=== PATIENT | male | born 1950 | race Caucasian/White ===

== ENCOUNTER 2018-12-16 10:20 | Emergency (ER) | payer MEDICARE, OTHER ==
[~2018-12-16] VITALS: Wt 60.0 kg
--- NOTE | 2018-12-16 11:08 | ERD ---
ER Documentation Chief Complaint Chief Complaint high blood pressure reading with no neuro deficit or pain. no complaints. HPI 68-year-old male presents the emergency department today for evaluation of his blood pressure at the request of a friend. Patient states he is asymptomatic with no chest pain, shortness of breath, headache, focal weakness or numbness. His blood pressure is chronically elevated and he states that he is compliant with his medications. His blood pressure was noted to be elevated by his friend who requested that he get an evaluation. However, patient continues to state that he has no symptoms at all. ROS All systems reviewed and are negative except as per history of present illness. Physical Exam Vitals Vital Signs Date Temp Pulse Resp B/P (MAP) Pulse Ox O2 O2 Flow FiO2 Time Delivery Rate 12/16/18 98.4 84 18 231/99 99 10:25 (143) Physical Exam GENERAL: The patient is well developed and appropriate for usual state of health in no apparent distress HEENT: Pupils equal, round, and reactive to light. EOMI. There is no scleral icterus. NECK: C-spine is soft and supple, there is no meningismus. There is no cervical lymphadenopathy. LUNGS: Clear to auscultation bilaterally. There are no rales, wheezes or rhonchi. HEART: Regular rate and rhythm, no murmurs, clicks, rubs or gallops. ABDOMEN: Soft, non-tender, non-distended. There are bowel sounds in all four quadrants. No rebound or guarding. EXTREMITIES: There is no peripheral cyanosis or edema. No focal swelling or erythema. NEURO: The patient moves all four extremities with 5/5 strength. Cranial nerves II - XII are intact. Normal gait. Alert and oriented SKIN: There is no apparent rash or petechiae. HEME/LYMPHATIC: There is no evidence of excessive bruising or lymphedema. PSYCHIATRIC: The patient does not appear anxious or depressed. Procedures/MDM Patient was taken to a room, seen and evaluated. Comfort measures were initiated. Diagnostic tests were ordered and reviewed. 3 LEAD RHYTHM STRIP: [Normal sinus rhythm without ectopy [employer]ISION [employer]KIN-year-old male presents with asymptomatic hypertension. At this time, patient has no clinical evidence of endorgan dysfunction related to his high blood pressure, and upon reevaluation of his blood pressure it has relatively normalized. Patient at this time seems clinically comfortable. He states he has a place to stay and appropriate outpatient follow-up and seems appropriate for outpatient care at this time. Departure Diagnosis: Primary Impression: Hypertension Condition: Stable Patient Instructions: High Blood Pressure (Hypertension) Additional Instructions: Please follow up with the clinic doctors for a recheck. Return for any problems or concerns NOREEN TYLER Dec 16, 2018 11:08
[2018-12-16 11:15] VITALS: BP 191/78; PULSE 81; RESP 18
== END 2018-12-16 12:48 | disposition home or self-care (01) ==
LOC: E/R 10:20
DX: I10 Essential (primary) hypertension (principal)
CPT/HCPCS: 99282